=== PATIENT | female | born 1955 | race Caucasian/White ===

== ENCOUNTER → 2016-07-12 | Outpatient (CLI) | payer BC, OTHER | LOC: RAD 15:21 | DX: Z12.31 Encounter for screening mammogram for malignant neoplasm of breast (principal) ==

== ENCOUNTER → 2018-01-24 | Outpatient (CLI) | payer BC, OTHER | LOC: ULTRA 01:30 | DX: N60.02 Solitary cyst of left breast (principal) ==

== ENCOUNTER → 2018-08-07 | Outpatient (CLI) | payer BC, OTHER | LOC: RAD 01:09 | DX: N60.02 Solitary cyst of left breast (principal); N60.01 Solitary cyst of right breast ==

== ENCOUNTER → 2019-10-06 | Outpatient (CLI) | payer BC, OTHER | LOC: BC 14:46 → EDSTATUS 17:10 | PROVIDERS: ATTEND Internal Medicine | DX: Z12.31 Encounter for screening mammogram for malignant neoplasm of breast (principal) ==